=== PATIENT | female | born 1995 | race Caucasian/White ===

== ENCOUNTER 2018-09-14 11:56 | Outpatient (REF) | payer BC, SELFPAY ==
--- NOTE | 2018-09-14 10:30 | PAPFT_PTH ---
PATIENT: Mattie MEJIA LOC: [facility] U#:[id number] AGE/SX: 22/F ROOM: RE09/14/[address]: Jazmine Boyer NP : 1995 BED: DIS: 09/14/2018 SPEC #: [id number] RECD: 09/14/18 18:06 STATUS: RANDARowena REBria #: [id number] TERRY: 09/14/18 10:[address]: Jazmine Boyer NP DEPT: [facility] Cytology RECD BY: Gracie Vincent ENTERED: 09/14/18 18:06 SP TYPE: PAPFT OTHR DR: Agustín Benson Tissues: 1 - CX/ENDOCX FOR PAP SMEARS Procedures: PAP THIN PREP/[facility] Screening HPV DNA PROBE Comments: [id number]
== END 2018-09-14 12:16 ==
LOC: LBN 11:56
PROVIDERS: PCP Internal Medicine; Visit Provider Nurse Practitioner Women's Health
DX: Z12.4 Encounter for screening for malignant neoplasm of cervix (principal)
CPT/HCPCS: 88142; 87624

== ENCOUNTER 2018-09-29 00:26 | Outpatient (CLI) | payer BC, SELFPAY ==
--- NOTE | 2018-09-29 09:21 | DI.US_ITS ---
SYMPTOM/DIAGNOSIS: RT BREAST LUMP UOQ, N63.11 RIGHT BREAST ULTRASOUND: The ultrasound examination of the right breast reveals no evidence of a cyst or mass. If there is in fact a palpable abnormality in this patient, then clinical management is recommended.
== END 2018-09-29 00:46 ==
PROVIDERS: PCP Internal Medicine; Visit Provider Nurse Practitioner Women's Health
DX: N63.11 Unspecified lump in the right breast, upper outer quadrant (principal)
CPT/HCPCS: 76642

== ENCOUNTER 2018-10-14 09:27 | Outpatient (REF) | payer BC, SELFPAY ==
--- NOTE | 2018-10-14 08:50 | CER_PTH ---
PATIENT: Mattie MEJIA LOC: [facility] U#:[id number] AGE/SX: 22/F ROOM: RE10/14/[address]: Lucius Rosado MD : 1995 BED: DIS: 10/14/2018 SPEC #: [id number] RECD: 10/14/18 12:38 STATUS: NATALIA REBria #: [id number] TERRY: 10/14/18 08:[address]: Lucius Rosado DEPT: Surgical Specimen RECD BY: Gracie Vincent ENTERED: 10/14/18 12:40 SP TYPE: CER OTHR DR: Jazmine Boyer, Agustín Elizabeth Tissues: 1 - CERVICAL BIOPSY 2 - CERVICAL BIOPSY 3 - ENDOCERVICAL BX/CURRETTE Procedures: GROSS AND MICRO LEVEL 4 P16 IPEX Comments: [id number]
== END 2018-10-14 09:47 ==
LOC: LBN 09:27
PROVIDERS: PCP Internal Medicine; Visit Provider Obstetrics & Gynecology
DX: D06.0 Carcinoma in situ of endocervix (principal); N87.1 Moderate cervical dysplasia; N87.9 Dysplasia of cervix uteri, unspecified; R87.613 High grade squamous intraepithelial lesion on cytologic smear of cervix (HGSIL)
CPT/HCPCS: 88305; 88342

== ENCOUNTER 2018-10-28 09:43 | Outpatient (REF) | payer BC, SELFPAY ==
--- NOTE | 2018-10-28 08:50 | CER_PTH ---
PATIENT: Mattie MEJIA LOC: [facility] U#:[id number] AGE/SX: 22/F ROOM: RE10/28/[address]: Lucius Rosado MD : 1995 BED: DIS: 10/28/2018 SPEC #: [id number] RECD: 10/28/18 12:47 STATUS: NATALIA REBria #: [id number] TERRY: 10/28/18 08:[address]: Lucius Rosado DEPT: Surgical Specimen RECD BY: Gracie Vincent ENTERED: 10/28/18 12:48 SP TYPE: CER OTHR DR: Cindy Mclain, [employer] Agustín Benson Tissues: 1 - CERVICAL LEEP/LOOP 2 - CERVICAL LEEP/LOOP 3 - ENDOCERVICAL BX/CURRETTE 4 - ENDOCERVICAL BX/CURRETTE Procedures: GROSS AND MICRO LEVEL 4 GROSS AND MICRO LEVEL 5 Comments: [id number]
== END 2018-10-28 10:03 ==
LOC: LBN 09:43
PROVIDERS: PCP Internal Medicine; Visit Provider Obstetrics & Gynecology
DX: D06.0 Carcinoma in situ of endocervix (principal); N87.1 Moderate cervical dysplasia; R87.613 High grade squamous intraepithelial lesion on cytologic smear of cervix (HGSIL)
CPT/HCPCS: 88305; 88307

== ENCOUNTER 2019-04-18 18:17 | Outpatient (REF) | payer BC, SELFPAY ==
[2019-04-20 12:51] LABS: Chlamydia Result Negative (Negative); GC Result Negative (Negative); Specimen Description CERVIX
== END 2019-04-18 18:37 ==
LOC: LBN 18:17
PROVIDERS: PCP Internal Medicine; Visit Provider Nurse Practitioner Women's Health
DX: Z11.3 Encounter for screening for infections with a predominantly sexual mode of transmission (principal)
CPT/HCPCS: 87491; 87591

== ENCOUNTER 2019-04-24 01:52 | Outpatient (CLI) | payer BC, SELFPAY ==
--- NOTE | 2019-04-24 13:56 | DI.US_ITS ---
EXAM: US PELVIS TRANSVAGINAL CLINICAL HISTORY: N91.10 Dyspareunia, ovarian pain, R10.2 PELVIC AND PERINEAL PAIN, RIGHT-SIDED PA IN TECHNIQUE: Ultrasound performed using standard protocol. COMPARISON: US breast RT complete from 09/29/2018 FINDINGS: The uterus measures 8.5 cm long x 4.0 cm AP x 5.7 cm transverse. The endometrial stripe is within no rmal limits at 8.9 mm. No uterine mass is seen. The left ovary measures 3.3 x 1.4 x 1.6 cm. There are small follicular cysts present. There is norm al blood flow to the left ovary. No evidence of torsion is present. The right ovary is mildly enlarged. There are follicular cysts present. There is normal blood flow to the right ovary. There is a 4.3 x 3.7 x 3.7 cm complex lesion arising from the right ovary. Ther e is posterior acoustic enhancement. No definite internal blood flow is seen. No hydronephrosis or significant free pelvic fluid is present. IMPRESSION: 4.3 x 3.7 x 3.7 cm complex lesion within the right ovary. The finding is nonspecific. This may repre sent a complex hemorrhagic cyst. Other etiologies cannot be excluded. A follow-up pelvic ultrasound in 6-8 weeks is recommended for re-evaluation. If the finding persists, MRI or CT scan of the pelvi s should be considered for further evaluation.
== END 2019-04-24 02:12 ==
PROVIDERS: PCP Internal Medicine; Visit Provider Nurse Practitioner Women's Health
DX: R10.2 Pelvic and perineal pain (principal); N94.10 Unspecified dyspareunia; N83.11 Corpus luteum cyst of right ovary
CPT/HCPCS: 76830; 76856

== ENCOUNTER 2019-05-02 11:47 | Outpatient (REF) | payer BC, SELFPAY ==
--- NOTE | 2019-05-02 09:25 | PAPFT_PTH ---
PATIENT: Mattie MEJIA LOC: [facility] U#:[id number] AGE/SX: 23/F ROOM: RE05/02/[address]: Lucius Rosado MD : 1995 BED: DIS: 05/02/2019 SPEC #: [id number] RECD: 05/02/19 12:55 STATUS: NATALIA REBria #: [id number] TERRY: 05/02/19 09:[address]: Lucius Rosado DEPT: [facility] Cytology RECD BY: Gracie Vincent ENTERED: 05/02/19 12:55 SP TYPE: PAPFT OTHR DR: Agustín Benson Tissues: 1 - CX/ENDOCX FOR PAP SMEARS Procedures: PAP THIN PREP/UVM Screening HPV DNA PROBE Comments: [id number]
--- NOTE | 2019-05-02 09:30 | ENDO_PTH ---
PATIENT: Mattie MEJIA LOC: [facility] U#:[id number] AGE/SX: 23/F ROOM: RE05/02/[address]: Lucius Rosado MD : 1995 BED: DIS: 05/02/2019 SPEC #: [id number] RECD: 05/02/19 12:50 STATUS: NATALIA REQ #: [id number] TERRY: 05/02/19 09:[address]: Lucius Rosado DEPT: Surgical Specimen RECD BY: Gracie Vincent ENTERED: 05/02/19 12:50 SP TYPE: Endo OTHR DR: Agustín Benson Tissues: 1 - ENDOCERVICAL BX/CURRETTE Procedures: GROSS AND MICRO LEVEL 4 Comments: [id number]
== END 2019-05-02 12:07 ==
LOC: LBN 11:47
PROVIDERS: PCP Internal Medicine; Visit Provider Obstetrics & Gynecology
DX: N87.9 Dysplasia of cervix uteri, unspecified (principal); Z87.410 Personal history of cervical dysplasia; Z12.4 Encounter for screening for malignant neoplasm of cervix; Z11.51 Encounter for screening for human papillomavirus (HPV)
CPT/HCPCS: 88142; 88305; 87624

== ENCOUNTER 2019-08-07 18:40 | Outpatient (REF) | payer OTHER, SELFPAY | END 2019-08-07 19:00 | LOC: LBN 18:40 | PROVIDERS: PCP Internal Medicine; Visit Provider Obstetrics & Gynecology | DX: N89.8 Other specified noninflammatory disorders of vagina (principal) | CPT/HCPCS: 87480; 87510; 87660 ==

== ENCOUNTER 2020-05-14 16:24 | Outpatient (REF) | payer OTHER, SELFPAY ==
--- NOTE | 2020-05-14 16:05 | PAPFT_PTH ---
PATIENT: Mattie MEJIA LOC: [facility] U#:[id number] AGE/SX: 24/F ROOM: RE05/14/[address]: Jazmine Boyer NP : 1995 BED: DIS: 05/14/2020 SPEC #: [id number] RECD: 05/14/20 17:52 STATUS: NATALIA REQ #: [id number] TERRY: 05/14/20 16:[address]: Merlin MCGUIRE,Jazmine [facility]PT[facility] Cytology RECD BY: Gracie Vincent ENTERED: 05/14/20 17:52 SP TYPE: PAPFT OTHR DR: Agustín Benson Tissues: 1 - CX/ENDOCX FOR PAP SMEARS Procedures: PAP THIN PREP/[facility] Screening Comments: [id number] ([facility])
== END 2020-05-14 16:44 ==
LOC: LBN 16:24
PROVIDERS: PCP Internal Medicine; Visit Provider Nurse Practitioner Women's Health
DX: Z86.001 Personal history of in-situ neoplasm of cervix uteri (principal); Z12.4 Encounter for screening for malignant neoplasm of cervix
CPT/HCPCS: 88142

== ENCOUNTER 2021-05-28 13:20 | Outpatient (REF) | payer OTHER, SELFPAY ==
--- NOTE | 2021-05-28 11:20 | PAPFT_PTH ---
PATIENT: Mattie MEJIA LOC: [facility] U#:[id number] AGE/SX: 25/F ROOM: RE05/28/[address]: Jazmine Boyer NP : 1995 BED: DIS: 05/28/2021 SPEC #: [id number] RECD: 05/28/21 18:11 STATUS: NATALIA REQ #: [id number] TERRY: 05/28/21 11:[address]: Merlin MGCUIRE,Jazmine DEPT: [facility] Cytology RECD BY: Gracie Vincent ENTERED: 05/28/21 18:12 SP TYPE: PAPFT OTHR DR: Agustín Benson Tissues: 1 - CX/ENDOCX FOR PAP SMEARS Procedures: PAP THIN PREP/UVM Screening Comments: [id number] ([facility]/GC)
[2021-05-29 15:34] LABS: Chlamydia Result Negative (Negative); GC Result Negative (Negative)
== END 2021-05-28 13:21 | disposition home or self-care (01) ==
LOC: LBN 13:20
PROVIDERS: PCP Internal Medicine; Visit Provider Nurse Practitioner Women's Health
DX: Z12.4 Encounter for screening for malignant neoplasm of cervix (principal); Z11.3 Encounter for screening for infections with a predominantly sexual mode of transmission
CPT/HCPCS: 87491; 87591; 88142